=== PATIENT | male | born 1945 | race Caucasian/White ===

== ENCOUNTER 2022-08-17 20:22 | Emergency (ER) | payer OTHER ==
[2022-08-17] MEDS ORDERED: ASPIRIN 81 MG CHEWABLE TABLET ONE (20:55)
[2022-08-17] MEDS ORDERED: NITROGLYCERIN 0.4 MG/TAB SL ONE (20:55)
--- NOTE | 2022-08-17 21:05 | RAD REPORT ---
EXAM DESCRIPTION: RAD - Chest Single View - 08/17/2022 9:00 pm CLINICAL HISTORY: CHEST PAIN Chest pain. COMPARISON: No comparisons FINDINGS: Portable technique limits examination quality. The lungs are grossly clear. The heart is normal in size. No displaced fractures. IMPRESSION: No acute intrathoracic process suspected.
[2022-08-17 21:08] LABS: Absolute Lymphocytes (CBC) 2.7 K/uL (0.7-4.9); Lymphocytes % 18.8 % (15.3-44.8); MCV 94.4 fL (80-100); RBC Red Blood Cell Count 4.56 M/uL (4.33-5.43)
[2022-08-17 21:20] LABS: Albumin 3.5 g/dL (3.4-5.0); Bilirubin Total 0.4 mg/dL (0.2-1.0); Potassium 3.9 mmol/L (3.5-5.1); Protein, Total 7.3 g/dL (6.4-8.2)
[2022-08-17] MEDS ORDERED: MORPHINE 4 MG/ML SYR ONE (21:42)
[2022-08-17] MEDS ORDERED: ONDANSETRON 4 MG/2 ML VIAL ONE (21:42)
[2022-08-17 22:10] LABS: Troponin High Sensitivity 4515.7 pg/mL (<58.9)
[2022-08-17] MEDS ORDERED: HEPARIN 5000 UNIT/ML 1 ML VIAL ONE (22:42)
[2022-08-17] MEDS ORDERED: NITROGLYCERIN/D5W 50 MG/250 ML BTL IV ONE (22:42)
[2022-08-17] MEDS ORDERED: HEPARIN/D5W 25,000 UNIT/500 ML BAG IV ONE (22:43)
--- NOTE | 2022-08-17 23:28 | ER ---
Nurse's Notes [facility] Name: Torrey Aguilar Age: 77 yrs Sex: Male : 1945 Arrival Date: 08/17/2022 Time: 20:26 Bed 19 Private MD: Diagnosis: Subsequent non-ST elevation (NSTEMI) myocardial infarction Presentation: 08/17 20:31 Chief complaint: Patient states: Left side chest pain pressure of 5,onset 1400 today pf1 and SOB with light exertion. Patient stated took Nitro x 3 tablets SL around 1830 today. Coronavirus screen: Vaccine status: Patient reports receiving the 2nd dose of the covid vaccine. Patient stated had complete series of Covid vaccine of 5 doses Client denies travel out of the [place] in the last 14 days. At this time, the client does not indicate any symptoms associated with coronavirus-19. Ebola Screen: Patient negative for fever greater than or equal to 101.5 degrees Fahrenheit, and additional compatible Ebola Virus Disease symptoms. 20:31 Method Of Arrival: Wheelchair pf1 20:31 Initial Sepsis Screen: Does the patient meet any 2 criteria? No. Patient's initial pf1 sepsis screen is negative. Does the patient have a suspected source of infection? No. Patient's initial sepsis screen is negative. Risk Assessment: Do you want to hurt yourself or someone else? Patient reports no desire to harm self or others. Onset of symptoms was August 17, 2022. 20:31 Acuity: ALVINA 2 pf1 Historical: - Allergies: 20:57 PENICILLINS; pf1 - Social history:: Smoking status: Patient uses alcohol, but reports only rare drinking. Patient/guardian denies using IV drugs, tobacco products. - Family history:: not pertinent. Screenin:48 [facility] ED Fall Risk Assessment (Adult) History of falling in the last 3 months, ll3 including since admission No falls in past 3 months (0 pts) Confusion or Disorientation No (0 pts) Intoxicated or Sedated No (0 pts) Impaired Gait No (0 pts) Mobility Assist Device Used No (0 pt) Altered Elimination No (0 pt) Score/Fall Risk Level 0 - 2 = Low Risk Oriented to surroundings, Maintained a safe environment, Educated pt \T\ family on fall prevention, incl call for assistance when getting out of bed. Abuse screen: Denies threats or abuse. Denies injuries from another. Nutritional screening: No deficits noted. Tuberculosis screening: No symptoms or risk factors identified. Assessment: 21:47 General: Appears uncomfortable, Behavior is calm, cooperative. Pain: Complains of pain ll3 in chest Pain does not radiate. Pain currently is 5 out of 10 on a pain scale. at worst was 9 out of 10 on a pain scale. Quality of pain is described as pressure, Pain began 2 pm. Cardiovascular: Patient's skin is warm and dry. Chest pain is described as mild, quality is pressure, is located in left anterior chest wall began 2 pm episodes are continuous. Respiratory: Reports shortness of breath Respiratory effort is even, unlabored, Respiratory pattern is regular, symmetrical. Derm: Skin is pink, warm \T\ dry. 23:06 Reassessment: No changes from previously documented assessment. Patient and/or family ll3 updated on plan of care and expected duration. Pain level reassessed. Patient is alert, oriented x 3, equal unlabored respirations, skin warm/dry/pink. States pain is 4/10. 08/18 00:10 Reassessment: ASSUMED CARE OF PT. PT LYING IN BED. NO DISTRESS NOTED VS STABLE. IV jj7 DRIPS STILL INFUSING. PAIN 3/10. AWAITING EMS FOR TRANSFER. NO NEEDS AT THIS TIME. General: Appears in no apparent distress. uncomfortable. Vital Signs: 08/17 20:31 BP 148 / 84; Pulse 73; Resp 14; Temp 98.3; Pulse Ox 97% on R/A; Weight 83.91 kg; Height pf1 5 ft. 8 in. (172.72 cm); Pain 5/10; 21:30 BP 121 / 67; Pulse 67; Resp 12; Pulse Ox 96% on R/A; ll3 22:42 Weight 84.3 kg (M); ll3 23:00 BP 127 / 91; Pulse 63; Resp 17; Pulse Ox 96% on R/A; ll3 23:51 Pain 3/10; ll3 03/02 00:11 Pain 3/10; ll3 00:22 BP 129 / 73; Pulse 64; Resp 16; Pulse Ox 93% on R/A; Pain 3/10; jj7 00:48 BP 122 / 70; Pulse 61; Resp 16; Pulse Ox 94% on R/A; Pain 2/10; jj7 08/17 22:42 Body Mass Index 28.26 (84.30 kg, 172.72 cm) ll3 ED Course: 08/17 20:26 Patient arrived in ED. ag3 20:31 Harvey Juárez MD is Attending Physician. rt 20:55 Inserted saline lock: 20 gauge in right antecubital area, using aseptic technique. ls5 Blood collected. 20:57 Triage completed. pf1 21:48 Patient maintains SpO2 saturation greater than 95% on room air. ll3 21:48 Patient has correct armband on for positive identification. Placed in gown. Bed in low ll3 position. Call light in reach. Side rails up X 1. Adult w/ patient. Client placed on continuous cardiac and pulse oximetry monitoring. NIBP monitoring applied. 21:48 Arm band placed on Patient placed in an exam room, on a stretcher, on cardiac technologist, ll3 on pulse oximetry. 22:51 Missed attempt(s): 20 gauge in left wrist. Bleeding controlled, band aid applied, jb5 catheter tip intact. 22:51 Inserted saline lock: 20 gauge in left antecubital area, using aseptic technique. Blood jb5 collected. 08/18 00:19 Darren Mcguire, RN is Primary Nurse. jj7 Administered Medications: 08/17 20:54 Drug: Aspirin Chewable Tablet 162 mg Route: PO; ll3 21:47 Follow up: Response: No adverse reaction ll3 20:57 Drug: Nitroglycerin 0.4 mg Route: Sublingual; ll3 21:02 Drug: Nitroglycerin 0.4 mg Route: Sublingual; ll3 21:07 Drug: Nitroglycerin 0.4 mg Route: Sublingual; ll3 21:47 Follow up: Response: No adverse reaction; Pain is unchanged, physician notified ll3 21:47 Drug: morphine 4 mg Route: IVP; Infused Over: 4 mins; Site: right antecubital; ll3 23:24 Follow up: Response: No adverse reaction; No change in condition ll3 21:47 Drug: Zofran (Ondansetron) 4 mg Route: IVP; Site: right antecubital; ll3 23:25 Follow up: Response: No adverse reaction ll3 22:50 Drug: Heparin (MO-Bolus No thrombolytic) - HEParin 60 units/kg {Co-Signature: lg3 ll3 (Natali Dietz RN).} Route: IVP; Site: right antecubital; 23:53 Follow up: Response: No adverse reaction ll3 22:53 Drug: Heparin (MO Drip) 12 units/kg/hr - (HEParin 92019 units, D5W 500 ml) ll3 {Co-Signature: lg3 (Natali Dietz RN).} Route: IV; Rate: calculated rate; Site: right antecubital; 23:02 Drug: Nitroglycerin 5 mcg/min Route: IV; Rate: calculated rate; Site: left antecubital; ll3 23:07 Follow up: Response: No change in condition; Rate change 10 mcg/min ll3 23:14 Follow up: Response: No adverse reaction; Pain is unchanged, physician notified; Rate ll3 change 15 mcg/min 23:21 Follow up: Response: No adverse reaction; Pain is unchanged, physician notified; Rate ll3 change 20 mcg/min 23:27 Follow up: Rate change 25 mcg/min ll3 23:35 Follow up: Rate change 30 mcg/min ll3 23:45 Follow up: Response: No adverse reaction; Pain is unchanged, physician notified; Rate ll3 change 35 mcg/min 23:51 Follow up: Pain 3/10 Adult; Response: No adverse reaction; Pain is decreased; Rate ll3 change 40 mcg/min 03/02 00:01 Follow up: Response: No adverse reaction; Pain is unchanged, physician notified; Rate ll3 change 45 mcg/min 00:01 Follow up: Response: No adverse reaction; Pain is unchanged, physician notified; Rate ll3 change 45 mcg/min 00:11 Follow up: Pain 3/10 Adult; Response: No adverse reaction; Pain is unchanged, physician ll3 notified; Rate change 50 mcg/min 00:15 Follow up: Rate change 55 Titrate jj7 00:35 Follow up: Rate change 65 mcg/min jj7 00:45 Follow up: Rate change 70 mcg/min jj7 00:55 Follow up: Rate change 75 mcg/min jj7 Medication: 08/17 23:19 VIS not applicable for this client. ll3 Outcome: 23:28 ER care complete, transfer ordered by . rt 08/18 01:18 Transferred Transfer form completed. X-rays sent w/ patient. Note: Nurse report called pf1 to [facility]. Patient being transferred to [facility] Condition: stable Instructed on the need for transfer, Demonstrated understanding of instructions. 01:43 Patient left the ED. pf1 Signatures: Eli Alvarez jb5 Georgiana Matute ag3 Sammie Ocampo RN RN ll3 Darren Mcguire RN RN jj7 Harvey Juárez MD MD rt Maile gan RN RN pf1 Carroll Garcia ls5 Natali Dietz RN lg3 Corrections: (The following items were deleted from the chart) 01:14 00:10 Reassessment: pain is now 08/26 sonal pruitt
--- NOTE | 2022-08-17 23:28 | EDPHYS ---
Physician Documentation [facility] Name: Torrey Aguilar Age: 77 yrs Sex: Male : 1945 Arrival Date: 08/17/2022 Time: 20:26 Bed 19 Private MD: ED Physician Harvey Juárez HPI: 08/17 21:21 This 77 yrs old Male presents to ER via Wheelchair with complaints of Chest Pain. rt 21:21 The patient or guardian reports chest pain that is located primarily in the substernal rt area. Onset: 5 hour(s) ago. The pain does not radiate. Associated signs and symptoms: Pertinent positives: shortness of breath. The chest pain is described as a pressure. Modifying factors: The symptoms are alleviated by ASA, 81mg X2. NTG, the symptoms are aggravated by exertion. Severity of pain: At its worst the pain was severe in the emergency department the pain has improved moderately. The patient has experienced similar episodes in the past, but today's symptoms are worse, more painful. Historical: - Allergies: 20:57 PENICILLINS; pf1 - Social history:: Smoking status: Patient uses alcohol, but reports only rare drinking. Patient/guardian denies using IV drugs, tobacco products. - Family history:: not pertinent. ROS: 21:21 Constitutional: Negative for fever, chills, and weight loss, Eyes: Negative for injury, rt pain, redness, and discharge, Abdomen/GI: Negative for abdominal pain, nausea, vomiting, diarrhea, and constipation, MS/Extremity: Negative for injury and deformity, Skin: Negative for injury, rash, and discoloration, Neuro: Negative for headache, weakness, numbness, tingling, and seizure, Psych: Negative for depression, anxiety, suicide ideation, homicidal ideation, and hallucinations. 21:21 Cardiovascular: Positive for chest pain, Negative for edema. 21:21 Respiratory: Positive for shortness of breath. Exam: 21:21 Constitutional: This is a well developed, well nourished patient who is awake, alert, rt and in no acute distress. Head/Face: Normocephalic, atraumatic. Chest/axilla: Normal chest wall appearance and motion. Nontender with no deformity. No lesions are appreciated. Cardiovascular: Regular rate and rhythm with a normal S1 and S2. No gallops, murmurs, or rubs. Normal PMI, no JVD. No pulse deficits. Respiratory: Lungs have equal breath sounds bilaterally, clear to auscultation and percussion. No rales, rhonchi or wheezes noted. No increased work of breathing, no retractions or nasal flaring. Abdomen/GI: Soft, non-tender, with normal bowel sounds. No distension or tympany. No guarding or rebound. No evidence of tenderness throughout. MS/ Extremity: Pulses equal, no cyanosis. Neurovascular intact. Full, normal range of motion. Neuro: Awake and alert, GCS 15, oriented to person, place, time, and situation. Cranial nerves II-XII grossly intact. Motor strength 5/5 in all extremities. Sensory grossly intact. Cerebellar exam normal. Normal gait. Psych: Awake, alert, with orientation to person, place and time. Behavior, mood, and affect are within normal limits. 21:21 ECG was reviewed by the Attending Physician. Vital Signs: 20:31 BP 148 / 84; Pulse 73; Resp 14; Temp 98.3; Pulse Ox 97% on R/A; Weight 83.91 kg; Height pf1 5 ft. 8 in. (172.72 cm); Pain 5/10; 21:30 BP 121 / 67; Pulse 67; Resp 12; Pulse Ox 96% on R/A; ll3 22:42 Weight 84.3 kg (M); ll3 23:00 BP 127 / 91; Pulse 63; Resp 17; Pulse Ox 96% on R/A; ll3 23:51 Pain 3/10; ll3 03/02 00:11 Pain 3/10; ll3 00:22 BP 129 / 73; Pulse 64; Resp 16; Pulse Ox 93% on R/A; Pain 3/10; jj7 00:48 BP 122 / 70; Pulse 61; Resp 16; Pulse Ox 94% on R/A; Pain 2/10; jj7 / 22:42 Body Mass Index 28.26 (84.30 kg, 172.72 cm) ll3 MDM: 08/17 20:32 Patient medically screened. rt 23:28 Differential diagnosis: abnormal EKG, acute myocardial infarction, pneumonia, rt pneumothorax, pulmonary embolus. HEART Score: History: Highly Suspicious (2), ECG: Normal (0), Age: > or = 65 years (2), Risk Factors: > or = 3 Risk factors for atherosclerotic disease (2), Troponin: > or = 3 x Normal Limit (2), Total Score = 8. The patient was given aspirin in the Emergency Department. Data reviewed: vital signs, nurses notes, lab test result(s), EKG, radiologic studies. Consideration of Admission/Observation Patient was admitted/placed on observation. Management of patient was discussed with the following: Associate Creative Director: Discussed with her trimmer and borer machine operator, recommends transfer as the [facility] is down. Discussed with accepting trimmer and borer machine operator at [facility] I considered the following discharge prescriptions or medication management in the emergency department Medications were administered in the Emergency Department. See MAR. Care significantly affected by the following chronic conditions: Hypertension. Counseling: I had a detailed discussion with the patient and/or guardian regarding: the historical points, exam findings, and any diagnostic results supporting the discharge/admit diagnosis, lab results, radiology results, the need to transfer to another facility. Response to treatment: the patient's symptoms have mildly improved after treatment. 08/17 20:42 Order name: EKG; Complete Time: 20:42 rt 08/17 20:42 Order name: EKG - Nurse/Tech; Complete Time: 20:48 rt 08/17 20:42 Order name: Troponin High Sensitivity rt 08/17 20:42 Order name: CBC with Diff rt 08/17 20:42 Order name: CMP rt 08/17 20:42 Order name: Chest Single View XRAY rt 08/17 21:07 Order name: RAD; Complete Time: 21:14 EDMS 08/17 21:09 Order name: CBC with Automated Diff; Complete Time: 21:14 EDMS 08/17 22:10 Order name: Comprehensive Metabolic Panel; Complete Time: 22:15 EDMS 08/17 22:10 Order name: Troponin High Sensitivity; Complete Time: 22:15 EDMS 08/17 22:23 Order name: SARS RAPID rt 08/17 22:35 Order name: Ptt, Activated rt 08/17 22:35 Order name: PT-INR rt 08/17 23:12 Order name: Troponin High Sensitivity ll3 EC:21 Rate is 70 beats/min. Rhythm is regular, Normal Sinus Rhythm with No ectopy. QRS [place] rt is Normal. [place] interval is normal. QRS interval is normal. QT interval is normal. No Q waves. T waves are Normal. No ST changes noted. Administered Medications: 20:54 Drug: Aspirin Chewable Tablet 162 mg Route: PO; ll3 21:47 Follow up: Response: No adverse reaction ll3 20:57 Drug: Nitroglycerin 0.4 mg Route: Sublingual; ll3 21:02 Drug: Nitroglycerin 0.4 mg Route: Sublingual; ll3 21:07 Drug: Nitroglycerin 0.4 mg Route: Sublingual; ll3 21:47 Follow up: Response: No adverse reaction; Pain is unchanged, physician notified ll3 21:47 Drug: morphine 4 mg Route: IVP; Infused Over: 4 mins; Site: right antecubital; ll3 23:24 Follow up: Response: No adverse reaction; No change in condition ll3 21:47 Drug: Zofran (Ondansetron) 4 mg Route: IVP; Site: right antecubital; ll3 23:25 Follow up: Response: No adverse reaction ll3 22:50 Drug: Heparin (MS-Bolus No thrombolytic) - HEParin 60 units/kg {Co-Signature: lg3 ll3 (Natali Dietz RN).} Route: IVP; Site: right antecubital; 23:53 Follow up: Response: No adverse reaction ll3 22:53 Drug: Heparin (MS Drip) 12 units/kg/hr - (HEParin 41891 units, D5W 500 ml) ll3 {Co-Signature: lg3 (Natali Dietz RN).} Route: IV; Rate: calculated rate; Site: right antecubital; 23:02 Drug: Nitroglycerin 5 mcg/min Route: IV; Rate: calculated rate; Site: left antecubital; ll3 23:07 Follow up: Response: No change in condition; Rate change 10 mcg/min ll3 23:14 Follow up: Response: No adverse reaction; Pain is unchanged, physician notified; Rate ll3 change 15 mcg/min 23:21 Follow up: Response: No adverse reaction; Pain is unchanged, physician notified; Rate ll3 change 20 mcg/min 23:27 Follow up: Rate change 25 mcg/min ll3 23:35 Follow up: Rate change 30 mcg/min ll3 23:45 Follow up: Response: No adverse reaction; Pain is unchanged, physician notified; Rate ll3 change 35 mcg/min 23:51 Follow up: Pain 3/10 Adult; Response: No adverse reaction; Pain is decreased; Rate ll3 change 40 mcg/min 08/18 00:01 Follow up: Response: No adverse reaction; Pain is unchanged, physician notified; Rate ll3 change 45 mcg/min 00:01 Follow up: Response: No adverse reaction; Pain is unchanged, physician notified; Rate ll3 change 45 mcg/min 00:11 Follow up: Pain 3/10 Adult; Response: No adverse reaction; Pain is unchanged, physician ll3 notified; Rate change 50 mcg/min 00:15 Follow up: Rate change 55 Titrate jj7 00:35 Follow up: Rate change 65 mcg/min jj7 00:45 Follow up: Rate change 70 mcg/min jj7 00:55 Follow up: Rate change 75 mcg/min jj7 Disposition: 08/17 23:28 Critical Care:. rt Disposition Summary: 08/17/22 23:28 Transfer Ordered Transfer Location: Other Acute Care Facility rt Reason: Higher level of care rt Condition: Serious rt Problem: new rt Symptoms: have improved rt Accepting Physician: Dr. Herzog(08/18/22 01:43) pf1 Diagnosis - Subsequent non-ST elevation (NSTEMI) myocardial infarction rt Forms: - Medication Reconciliation Form rt - SBAR form rt Critical care time excluding procedures: 23:28 Critical care time: Bedside Care: 30 minutes, Consultation: 10 minutes. Total time: 40 rt minutes Signatures: Dispatcher [employer] Sammie Mason RN RN ll3 Harvey Juárez MD MD rt Maile gan RN RN pf1 Darren Mcguire RN jj7 Natali Dietz RN lg3 Corrections: (The following items were deleted from the chart) 08/18 01:43 08/17 23:28 Dr. Herzog rt pf1
[2022-08-17 23:33] LABS: SARS-CoV-2 Antigen Rapid Res Negative (Negative)
[2022-08-18 00:11] LABS: Protime INR 1.08
[2022-08-18 02:13] VITALS: TEMP 98.3
[2022-08-18 02:20] VITALS: BP 122/70; O2SAT 94
--- NOTE | 2022-08-18 17:26 | EKG ---
Test Date: 2022-08-17 Test Time: 20:43:50 Monkey Keeper: ERIKA MEASUREMENT RESULTS: Intervals: Rate: 70 SC: 154 QRSD: 76 QT: 378 QTc: 408 [place]: P: 43 SC: 154 QRS: 37 T: 72 INTERPRETIVE STATEMENTS: Normal sinus rhythm Normal ECG No previous ECG available for comparison Electronically Signed On 08-18-22 17:25:39 COMMERCIAL ROOFER by Leif Tom
== END 2022-08-18 01:43 ==
LOC: ER 20:22
DX: I21.4 Non-ST elevation (NSTEMI) myocardial infarction (principal); Z88.0 Allergy status to penicillin; Z20.822 Contact with and (suspected) exposure to COVID-19
CPT/HCPCS: 93005; 85025; 36415; 85610; 85730; 84484 ×2; 80053; 71045; 99285; 87811; J1644 ×2; J2405